=== PATIENT | male | born 1975 | race African-American/Black ===

== ENCOUNTER 2023-09-27 20:06 | Inpatient (IN) | payer MEDICAID ==
[~2023-09-27] VITALS: Ht 177.8 cm; Wt 72.6 kg
[2023-09-27 22:05] LABS: BASOPHILS % 0.8 % (0.0-2.0); EOSINOPHILS % 2.5 % (0.0-5.0); HEMATOCRIT. 40.2 % (42.0-52.0); HEMOGLOBIN. 13.3 g/dL (14.0-18.0); LYMPHOCYTES % 36.5 % (20.0-50.0); MEAN CORPUSCULAR HEMOGLOBIN 31.9 pg (28.0-32.0); MEAN CORPUSCULAR VOLUME 96.6 fL (80.0-94.0); MEAN PLATELET VOLUME 9.7 fl (7.4-10.4); MONOCYTES % 11.7 % (2.0-8.0); NEUTROPHILS % 48.5 % (40.0-76.0); PLATELET 271 x1000/uL (130-400); RED BLOOD CELL COUNT 4.16 mill/uL (4.7-6.1); RED CELL DISTRIBUTION WIDTH 16.5 % (11.6-14.6); WHITE BLOOD COUNT 4.4 x1000/uL (4.5-11.0)
[2023-09-27 22:06] LABS: CHLORIDE 101 mEq/L (98-107); POTASSIUM 4.5 mEq/L (3.5-5.1); SODIUM 137 mEq/L (136-145)
[2023-09-27 22:07] LABS: CALCIUM 8.5 mg/dL (8.7-10.4); CARBON DIOXIDE 28 mEq/L (21-32)
[2023-09-27 22:12] LABS: CREATININE 1.6 mg/dL (0.6-1.3); GLUCOSE 86 mg/dL (70-105); UREA NITROGEN BLOOD 22 mg/dL (9-23)
[2023-09-27 22:16] LABS: TROPONIN I HIGH SENSITIVITY 1522 ng/L (3.0-53)
[2023-09-27 22:26] LABS: INR 1.1; PROTHROMBIN TIME 11.8 sec (9.6-11.0)
[2023-09-27] MEDS: FUROSEMIDE 40MG/4ML VIAL IVP ONE (22:56)
[2023-09-28] MEDS ORDERED: NON FORMULARY PATIENT HOME MED XX SCH (10:45)
[2023-09-28] MEDS: ASPIRIN 81MG TABLET PO SCH (11:03)
[2023-09-28] MEDS: FUROSEMIDE 40MG/4ML VIAL IVP SCH (11:04)
[2023-09-28] MEDS: SACUBITRIL/VALSARTAN 24MG/26MG TABLET PO SCH (12:05)
[2023-09-28 12:23] LABS: T4 FREE 1.42 ng/dL (0.89-1.76); THYROID STIMULATING HORMONE 2.19 uIU/mL (0.55-4.78)
[2023-09-28 12:27] LABS: TROPONIN I HIGH SENSITIVITY 943 ng/L (3.0-53)
[2023-09-28] MEDS: SPIRONOLACTONE 25MG TABLET PO SCH (15:35)
[2023-09-28] MEDS: FUROSEMIDE 100MG/10ML VIAL IVP SCH (18:02)
[2023-09-28 19:23] LABS: TROPONIN I HIGH SENSITIVITY 817 ng/L (3.0-53)
[2023-09-28] MEDS: ATORVASTATIN CALCIUM 40MG TABLET PO SCH (21:00)
[2023-09-28 23:21] VITALS: BP 101/56; PULSE 70; RESP 18; TEMP 98.2
[2023-09-29] VITALS: BP 101/56; PULSE 70; RESP 20; TEMP 98.2
[2023-09-29] MEDS ORDERED: GUAI120017 PO (01:15)
[2023-09-29] MEDS ORDERED: [UNRECOGNIZED DRUG - CODE] PO (01:17)
[2023-09-29] MEDS ORDERED: FURO80TA87 PO (01:17)
[2023-09-29] MEDS ORDERED: ASPI-1497 PO (01:27)
[2023-09-29] MEDS ORDERED: AMOX1TAB16 MT (01:27)
[2023-09-29] MEDS ORDERED: EMPA10TA PO (01:27)
[2023-09-29] MEDS ORDERED: ACET-2708 PO (01:27)
[2023-09-29] MEDS ORDERED: SACU1TAB PO ×2 (01:27→13:46)
[2023-09-29 01:59] LABS: TROPONIN I HIGH SENSITIVITY 647 ng/L (3.0-53)
[2023-09-29 04:00] VITALS: BP 101/66; PULSE 89; RESP 20; TEMP 98.4
[2023-09-29 08:00] VITALS: BP 100/56; PULSE 64; RESP 20; TEMP 97.6
[2023-09-29 08:15] LABS: *AMPHETAMINES SCREEN URINE NEGATIVE (NEGATIVE); *BARBITURATES SCREEN URINE NEGATIVE (NEGATIVE); *COCAINE SCREEN URINE NEGATIVE (NEGATIVE)
[2023-09-29 08:16] LABS: ECSTASY MDMA SCREEN URINE NEGATIVE (NEGATIVE); METHADONE URINE SCREEN NEGATIVE (NEGATIVE); OPIATES URINE SCREEN NEGATIVE (NEGATIVE); PHENCYCLIDINE URINE SCREEN NEGATIVE (NEGATIVE)
[2023-09-29 12:00] VITALS: PULSE 60; RESP 20; TEMP 96.4
[2023-09-29] MEDS ORDERED: CARV3.1242 MT (13:46)
[2023-09-29] MEDS ORDERED: FURO-151 MT (13:46)
[2023-09-29] MEDS ORDERED: ASPI-1160 PO (13:46)
[2023-09-29] MEDS ORDERED: SPIR25TA PO (13:46)
[2023-09-29] MEDS ORDERED: LIP40 PO (13:46)
[2023-09-29 14:05] VITALS: BP 100/56; PULSE 78; TEMP 96.2; O2SAT 98
[2023-09-30 14:41] LABS: HEPATITIS B SURFACE ANTIGEN NEGATIVE (Negative)
[2023-09-30 15:01] LABS: HEPATITIS C AB NON REACTIVE (Neg) (Negative)
== END 2023-09-29 15:10 | disposition home or self-care (01) | DRG 190 ==
LOC: ER 20:06 → 5WST 23:46 → 8WST 09-28 22:55
PROVIDERS: ADMIT Internal Medicine; ATTEND Internal Medicine
DX: I21.4 Non-ST elevation (NSTEMI) myocardial infarction (principal); N17.0 Acute kidney failure with tubular necrosis; I50.23 Acute on chronic systolic (congestive) heart failure; E11.9 Type 2 diabetes mellitus without complications; D64.9 Anemia, unspecified; D72.819 Decreased white blood cell count, unspecified; Z20.822 Contact with and (suspected) exposure to COVID-19; N17.9 Acute kidney failure, unspecified
CPT/HCPCS: 36415; 71045; 80048; 80061; 80305; 83036; 83880; 84145; 84439; 84443; 84484; 85025; 86705; 87340; 87426; 87804; 93005; 93306; 99291; J1940

== ENCOUNTER 2024-01-27 19:39 | Inpatient (IN) | payer MEDICAID ==
[~2024-01-27] VITALS: Ht 177.8 cm; Wt 63.5 kg
[~2024-01-27 19:39] MED LIST: ACET-2708 PO; ASPI-1160 PO; ASPI-1497 PO; CARV3.1242 MT; EMPA10TA PO; FURO-151 MT; FURO80TA87 PO; GUAI120017 PO; LIP40 PO; SACU1TAB PO; SPIR25TA PO; [UNRECOGNIZED DRUG - CODE] PO
[2024-01-27 20:45] LABS: BASOPHILS % 1.1 % (0.0-2.0); EOSINOPHILS % 2.1 % (0.0-5.0); HEMATOCRIT. 39.3 % (42.0-52.0); HEMOGLOBIN. 13.6 g/dL (14.0-18.0); MEAN CORPUSCULAR HEMOGLOBIN 33.3 pg (28.0-32.0); MEAN CORPUSCULAR HGB CONC 34.7 g/dL (31.0-37.0); MEAN CORPUSCULAR VOLUME 96.2 fL (80.0-94.0); MEAN PLATELET VOLUME 9.2 fl (7.4-10.4); MONOCYTES % 12.7 % (2.0-8.0); NEUTROPHILS % 47.1 % (40.0-76.0); PLATELET 214 x1000/uL (130-400); RED BLOOD CELL COUNT 4.09 mill/uL (4.7-6.1); RED CELL DISTRIBUTION WIDTH 13.6 % (11.6-14.6); WHITE BLOOD COUNT 4.4 x1000/uL (4.5-11.0)
[2024-01-27 20:52] LABS: CHLORIDE 105 mEq/L (98-107); POTASSIUM 4.1 mEq/L (3.5-5.1); SODIUM 138 mEq/L (136-145)
[2024-01-27 20:53] LABS: CALCIUM 9.1 mg/dL (8.7-10.4); CARBON DIOXIDE 26 mEq/L (21-32)
[2024-01-27 20:58] LABS: CREATININE 1.7 mg/dL (0.6-1.3); GLUCOSE 94 mg/dL (70-105); UREA NITROGEN BLOOD 29 mg/dL (9-23)
[2024-01-27 21:00] LABS: TROPONIN I HIGH SENSITIVITY 23 ng/L (3.0-53)
[2024-01-27 21:21] LABS: INR 1.1; PARTIAL THROMBOPLASTIN TIME 25.7 sec (23.4-31.0); PROTHROMBIN TIME 11.8 sec (9.6-11.0)
[2024-01-28] VITALS: BP 98/72; PULSE 91; RESP 20; TEMP 36.33624; O2SAT 93
[2024-01-28 00:15] LABS: TROPONIN I HIGH SENSITIVITY 26 ng/L (3.0-53)
[2024-01-28] MEDS: FUROSEMIDE 40MG/4ML VIAL IVP ONE (00:44)
[2024-01-28 04:00] VITALS: BP 98/73; PULSE 86; RESP 16; TEMP 36.6696; O2SAT 98
[2024-01-28 04:27] VITALS: PULSE 88; RESP 22; O2SAT 96
[2024-01-28] MEDS: IPRATROPIUM/ALBUTEROL 0.5-3(2.5)MG/3ML NEB HHN PRN (04:27)
[2024-01-28] MEDS: GUAIFENESIN/DM 600MG/30MG ER TAB 12HR PO SCH (05:30)
[2024-01-28] MEDS: CARVEDILOL 3.125 MG TABLET PO SCH (09:00)
[2024-01-28] MEDS: MIDODRINE HCL 5MG TABLET PO SCH (09:37)
[2024-01-28] MEDS: ASPIRIN 81MG TABLET PO SCH (09:37)
[2024-01-28] MEDS: SPIRONOLACTONE 25MG TABLET PO SCH (09:38)
[2024-01-28] MEDS: SACUBITRIL/VALSARTAN 24MG/26MG TABLET PO SCH (09:38)
[2024-01-28] MEDS: FUROSEMIDE 40MG/4ML VIAL IVP SCH (13:12)
[2024-01-28 16:37] VITALS: BP 102/80; PULSE 102; RESP 26; TEMP 36.50292; O2SAT 99
[2024-01-28 16:56] VITALS: BP 102/80; PULSE 102; RESP 26; TEMP 36.5292
[2024-01-28 17:04] LABS: *AMPHETAMINES SCREEN URINE NEGATIVE (NEGATIVE); *BARBITURATES SCREEN URINE NEGATIVE (NEGATIVE); *BENZODIAZEPINES SCREEN URINE NEGATIVE (NEGATIVE); *COCAINE SCREEN URINE NEGATIVE (NEGATIVE); CANNABINOID URINE SCREEN NEGATIVE (NEGATIVE); ECSTASY MDMA SCREEN URINE NEGATIVE (NEGATIVE); METHADONE URINE SCREEN NEGATIVE (NEGATIVE); OPIATES URINE SCREEN NEGATIVE (NEGATIVE); PHENCYCLIDINE URINE SCREEN NEGATIVE (NEGATIVE)
[2024-01-28] MEDS ORDERED: voltaren gel (17:24)
[2024-01-28] MEDS ORDERED: MIRT-89 PO (17:24)
[2024-01-28] MEDS ORDERED: METO-385 PO (17:24)
[2024-01-28] MEDS ORDERED: IPRATROPIUM BROMIDE (0.02%) 0.5MG/2.5ML NEB HHN PRN (18:15)
[2024-01-28 18:24] VITALS: PULSE 111; RESP 26; O2SAT 97
[2024-01-28] MEDS: METOLAZONE 2.5MG TABLET PO NR (18:46)
[2024-01-28] MEDS: LORAZEPAM 0.5MG TABLET PO PRN (18:46)
[2024-01-28 20:58] LABS: HEPATITIS B SURFACE ANTIGEN NEGATIVE (Negative)
[2024-01-28 21:19] LABS: HEPATITIS C AB NON REACTIVE (Neg) (Negative)
[2024-01-28] MEDS: ATORVASTATIN CALCIUM 40MG TABLET PO SCH (21:54)
[2024-01-29] VITALS (7 sets, daily range): BP systolic 65–116; BP diastolic 60–90; PULSE 74–188; RESP 13–31; TEMP 36.44736–37.05852; O2SAT 95–100
[2024-01-29] MEDS ORDERED: ALBU18HF2 IH (10:34)
[2024-01-29] MEDS: GUAIFENESIN/DM 600MG/30MG ER TAB 12HR PO SCH (21:00)
[2024-01-29] MEDS: SACUBITRIL/VALSARTAN 24MG/26MG TABLET PO SCH (21:57)
[2024-01-30] VITALS: BP 96/58; PULSE 85; RESP 16; TEMP 36.55848; O2SAT 95
[2024-01-30 04:00] VITALS: BP 96/54; PULSE 85; RESP 12; TEMP 36.6696; O2SAT 96
[2024-01-30 08:00] VITALS: BP 95/76; PULSE 93; RESP 15; TEMP 37.05852; O2SAT 98
[2024-01-30 09:00] VITALS: PULSE 93
[2024-01-30] MEDS ORDERED: EMPA10TA PO (11:34)
== END 2024-01-30 12:28 | disposition home or self-care (01) | DRG 194 ==
LOC: ER 19:39 → EDBEDREQ 19:57 → 5WST 21:24 → EDBEDREQ 21:30 → 3WST 01-28 16:13
PROVIDERS: ADMIT Internal Medicine; ATTEND Internal Medicine
DX: I50.23 Acute on chronic systolic (congestive) heart failure (principal); J68.0 Bronchitis and pneumonitis due to chemicals, gases, fumes and vapors; N17.9 Acute kidney failure, unspecified; I42.9 Cardiomyopathy, unspecified; N18.9 Chronic kidney disease, unspecified; F15.90 Other stimulant use, unspecified, uncomplicated
CPT/HCPCS: 36415; 71045; 80048; 80305; 83880; 84484; 85025; 86705; 87340; 93005; 94640; 99291; C1893; J1940

== ENCOUNTER 2024-04-11 10:06 | Emergency (ER) | payer MEDICAID ==
[~2024-04-11] VITALS: Ht 172.7 cm; Wt 82.0 kg
[~2024-04-11 10:06] MED LIST changes: +ALBU18HF2 IH; -ASPI-1497 PO; -CARV3.1242 MT; -FURO-151 MT; -GUAI120017 PO; +METO-385 PO; +MIRT-89 PO; -[UNRECOGNIZED DRUG - CODE] PO; +voltaren gel
[2024-04-11 10:11] VITALS: TEMP 98.8; O2SAT 93
[2024-04-11] MEDS: ASPIRIN 81MG TABLET PO ONE (10:44)
[2024-04-11] MEDS: FUROSEMIDE 40MG/4ML VIAL IV ONE (10:44)
[2024-04-11 11:00] VITALS: RESP 17
[2024-04-11 11:06] LABS: HEMOGLOBIN. 14.2 g/dL (14.0-18.0); MEAN CORPUSCULAR HEMOGLOBIN 32.2 pg (28.0-32.0); MEAN CORPUSCULAR HGB CONC 33.1 g/dL (31.0-37.0); MEAN CORPUSCULAR VOLUME 97.1 fL (80.0-94.0); MEAN PLATELET VOLUME 9.6 fl (7.4-10.4); PLATELET 267 x1000/uL (130-400); RED BLOOD CELL COUNT 4.43 mill/uL (4.7-6.1); RED CELL DISTRIBUTION WIDTH 15.4 % (11.6-14.6); WHITE BLOOD COUNT 4.9 x1000/uL (4.5-11.0)
[2024-04-11 11:08] LABS: DIFFERENTIAL COMMENT 1
[2024-04-11 11:10] VITALS: RESP 20
[2024-04-11 11:10] LABS: CARBON DIOXIDE 29 mEq/L (21-32); CHLORIDE 103 mEq/L (98-107); SODIUM 138 mEq/L (136-145)
[2024-04-11 11:11] LABS: CALCIUM 8.5 mg/dL (8.7-10.4)
[2024-04-11 11:15] LABS: CREATININE 1.9 mg/dL (0.6-1.3)
[2024-04-11 11:16] LABS: GLUCOSE 85 mg/dL (70-105); UREA NITROGEN BLOOD 24 mg/dL (9-23)
[2024-04-11 11:18] LABS: TROPONIN I HIGH SENSITIVITY 22 ng/L (3.0-53)
[2024-04-11 11:20] VITALS: RESP 24
[2024-04-11 11:44] LABS: INR 1.1; PARTIAL THROMBOPLASTIN TIME 25.6 sec (23.4-31.0); PROTHROMBIN TIME 12.6 sec (9.6-11.0)
[2024-04-11 12:08] LABS: PLATELET ESTIMATE NORMAL
[2024-04-11 13:37] LABS: TROPONIN I HIGH SENSITIVITY 23 ng/L (3.0-53)
[2024-04-11] MEDS: FUROSEMIDE 40MG/4ML VIAL IVP NR (19:09)
[2024-04-11 20:34] LABS: TROPONIN I HIGH SENSITIVITY 26 ng/L (3.0-53)
[2024-04-12] MEDS ORDERED: ENOXAPARIN 40MG/0.4ML SYR SUBCUT SCH (00:45)
[2024-04-12] MEDS ORDERED: CLONIDINE 0.1MG TABLET PO PRN (00:45)
[2024-04-12] MEDS ORDERED: HYDROCODONE/ACETAMINOPHEN 5/325MG TABLET PO PRN (00:45)
[2024-04-12] MEDS ORDERED: ZOLPIDEM TARTRATE 5MG TABLET PO PRN (00:45)
[2024-04-12] MEDS ORDERED: ONDANSETRON HCL 4MG/2ML INJ IV PRN (00:45)
[2024-04-12] MEDS ORDERED: IPRATROPIUM/ALBUTEROL 0.5-3(2.5)MG/3ML NEB NEB PRN (00:45)
[2024-04-12] MEDS ORDERED: ACETAMINOPHEN 325MG TABLET PO PRN (00:45)
[2024-04-12 03:30] VITALS: BP 115/72; PULSE 73; RESP 19; O2SAT 96
[2024-04-12 04:51] LABS: CLARITY URINE CLEAR (CLEAR); COLOR URINE YELLOW (YELLOW); GLUCOSE URINE 2+ (NEGATIVE); KETONES URINE NEGATIVE (NEGATIVE); LEUKOCYTE ESTERASE URINE NEGATIVE (NEGATIVE); NITRITE URINE NEGATIVE (NEGATIVE); OCCULT BLOOD URINE NEGATIVE (NEGATIVE); PROTEIN URINE NEGATIVE (NEGATIVE); SPECIFIC GRAVITY URINE 1.009 (1.005-1.030); UROBILINOGEN URINE 0.2 E.U./dL (0.2-1.0)
[2024-04-12 05:19] LABS: BACTERIA URINE NONE SEEN; RBC URINE NONE SEEN /hpf (0-2); SQUAMOUS EPITHELIAL CELL URINE NONE SEEN /lpf (RARE/1+); WBC URINE 0-2 /hpf (0-2)
[2024-04-12 06:55] LABS: *AMPHETAMINES SCREEN URINE NEGATIVE (NEGATIVE)
[2024-04-12 06:56] LABS: *BARBITURATES SCREEN URINE NEGATIVE (NEGATIVE); *BENZODIAZEPINES SCREEN URINE NEGATIVE (NEGATIVE); *COCAINE SCREEN URINE NEGATIVE (NEGATIVE); ECSTASY MDMA SCREEN URINE NEGATIVE (NEGATIVE); METHADONE URINE SCREEN NEGATIVE (NEGATIVE); OPIATES URINE SCREEN NEGATIVE (NEGATIVE); PHENCYCLIDINE URINE SCREEN PRESUMTIVE POSITIVE (NEGATIVE)
[2024-04-12 07:49] LABS: CANNABINOID URINE SCREEN NEGATIVE (NEGATIVE)
[2024-04-12] MEDS ORDERED: ASPIRIN 81MG TABLET PO SCH (09:00)
[2024-04-12] MEDS ORDERED: HEPARIN 5000 UNITS/ML VIAL SUBCUT SCH (09:00)
[2024-04-12] MEDS ORDERED: SACUBITRIL/VALSARTAN 24MG/26MG TABLET PO SCH (09:00)
[2024-04-12] MEDS ORDERED: FUROSEMIDE 40MG/4ML VIAL IVP SCH (09:00)
[2024-04-12] MEDS ORDERED: ATORVASTATIN CALCIUM 40MG TABLET PO SCH (21:00)
== END 2024-04-12 09:05 | disposition left against medical advice (07) ==
LOC: ER 10:06 → EDBEDREQSVC 04-12 08:01 → ER 04-12 09:05
DX: I50.9 Heart failure, unspecified (principal); E11.22 Type 2 diabetes mellitus with diabetic chronic kidney disease; E78.5 Hyperlipidemia, unspecified; I13.0 Hypertensive heart and chronic kidney disease with heart failure and stage 1 through stage 4 chronic kidney disease, or unspecified chronic kidney disease; I25.10 Atherosclerotic heart disease of native coronary artery without angina pectoris; N18.30 Chronic kidney disease, stage 3 unspecified; Z79.82 Long term (current) use of aspirin; Z79.84 Long term (current) use of oral hypoglycemic drugs; Z79.899 Other long term (current) drug therapy
CPT/HCPCS: 80048; 83880; 85025; 85610; 85730; 84484; 36415; 71045; 94660; 93005; 94070; 96374; 96376; 99291; 80305; 81003; 93970; Z7610 ×4; J1940; 96375

== ENCOUNTER 2024-10-31 19:38 | Emergency (ER) | payer MEDICAID ==
[~2024-10-31] VITALS: Ht 175.3 cm; Wt 82.0 kg
[~2024-10-31 19:38] MED LIST changes: +AMOX1TAB16 MT; +DOXY100T28 MT; +FURO80TA3 PO; +GUAI-741 PO; +HYDR100T11 PO; +ISOS20TA8 PO; +METO200T34 PO
[2024-10-31 19:39] VITALS: TEMP 36.9; O2SAT 100
[2024-10-31 20:38] LABS: HEMATOCRIT. 38.3 % (42.0-52.0); HEMOGLOBIN. 12.9 g/dL (14.0-18.0); MEAN PLATELET VOLUME 8.8 fl (7.4-10.4); PLATELET 228 x1000/uL (130-400); RED BLOOD CELL COUNT 4.02 mill/uL (4.7-6.1); RED CELL DISTRIBUTION WIDTH 15.3 % (11.6-14.6)
[2024-10-31 20:51] LABS: CREATININE 1.5 mg/dL (0.6-1.3); ETHANOL BLOOD < 10 mg/dL (<10); TROPONIN I HIGH SENSITIVITY 15 ng/L (3.0-53); UREA NITROGEN BLOOD 18 mg/dL (9-23)
[2024-10-31] MEDS: SODIUM CHLORIDE 0.9% 1,000 ML IV ONE (20:52)
[2024-10-31 20:53] LABS: ASPARTATE AMINOTRANSFERASE 20 IU/L (<34); BILIRUBIN DIRECT 0.2 mg/dL (<=3.0); BILIRUBIN TOTAL 0.4 mg/dL (0.1-1.0); PROTEIN TOTAL 6.2 g/dL (6.0-8.3)
[2024-10-31] MEDS: ACETAMINOPHEN 1000MG/100ML 100 ML IV ONE (21:01)
[2024-10-31 21:04] LABS: EOSINOPHILS % MANUAL 1.0 % (0.0-5.0); LYMPHOCYTES % MANUAL 49.0 % (20.0-50.0); MONOCYTES % MANUAL 16.0 % (2.0-8.0); NEUTROPHILS % MANUAL 34.0 % (45.0-75.0); PLATELET ESTIMATE NORMAL
[2024-10-31 21:15] LABS: INR 1.1
[2024-10-31 21:34] LABS: CLARITY URINE CLEAR (CLEAR); GLUCOSE URINE 2+ (NEGATIVE); KETONES URINE NEGATIVE (NEGATIVE); LEUKOCYTE ESTERASE URINE NEGATIVE (NEGATIVE); NITRITE URINE NEGATIVE (NEGATIVE); OCCULT BLOOD URINE NEGATIVE (NEGATIVE); PH URINE 7.5 (4.5-8.0); PROTEIN URINE NEGATIVE (NEGATIVE); SPECIFIC GRAVITY URINE 1.010 (1.005-1.030); UROBILINOGEN URINE 0.2 E.U./dL (0.2-1.0)
[2024-10-31] MEDS: KCL 20MEQ/100ML PREMIX 100 ML IV SCH (21:38)
[2024-10-31 22:02] LABS: *AMPHETAMINES SCREEN URINE PRESUMPTIVE POSITIVE (NEGATIVE)
[2024-10-31 22:03] LABS: *BARBITURATES SCREEN URINE NEGATIVE (NEGATIVE); *BENZODIAZEPINES SCREEN URINE NEGATIVE (NEGATIVE); *COCAINE SCREEN URINE NEGATIVE (NEGATIVE); CANNABINOID URINE SCREEN NEGATIVE (NEGATIVE); ECSTASY MDMA SCREEN URINE NEGATIVE (NEGATIVE); METHADONE URINE SCREEN NEGATIVE (NEGATIVE); OPIATES URINE SCREEN NEGATIVE (NEGATIVE); PHENCYCLIDINE URINE SCREEN NEGATIVE (NEGATIVE)
[2024-10-31 22:09] LABS: COLOR URINE STRAW (YELLOW)
[2024-10-31 22:11] LABS: BACTERIA URINE NONE SEEN; RBC URINE NONE SEEN /hpf (0-2); SQUAMOUS EPITHELIAL CELL URINE FEW /lpf (RARE/1+); WBC URINE 0-2 /hpf (0-2)
[2024-11-01 00:21] LABS: TROPONIN I HIGH SENSITIVITY 14 ng/L (3.0-53)
[2024-11-01 00:38] VITALS: BP 90/57; PULSE 51; RESP 16; O2SAT 100
[2024-11-01] MEDS ORDERED: POTASSIUM CHLORIDE 20MEQ TABLET SR PO SCH (02:00)
== END 2024-11-01 00:50 | disposition admitted as inpatient to this hospital (09) ==
LOC: ER 19:38 → 7WST 23:33 → UNDOADMIN 23:33 → EDBEDREQTM 11-01 00:01 → EDBEDREQ 11-01 00:01 → ENRESERV 11-01 00:11 → UNDODISIN 11-01 02:25
DX: R07.89 Other chest pain (principal); E87.6 Hypokalemia; R53.1 Weakness; I11.0 Hypertensive heart disease with heart failure; I50.9 Heart failure, unspecified; Z79.899 Other long term (current) drug therapy
CPT/HCPCS: 80076; 80305; 80048; 81003; 80320; 83880; 83690; 85025; 85379; 85610; 85730; 86850; 86900; 86901; 84484; 36415; 71045; 93005; 96368; 96365; 99285; 96366; J3480 ×2; J7030; G0480; J0131